=== PATIENT | male | born 1980 ===

== ENCOUNTER 2016-08-26 14:45 | Emergency (ER) | payer OTHER ==
[2016-08-26 14:56] VITALS: BP 131/73
[2016-08-26] MEDS ORDERED: KETOROLAC TROMETHAMINE 60 MG/2 ML VIAL IM ONE ×2 (15:10→15:13)
--- NOTE | 2016-08-26 15:15 | ERNOTE ---
Lower Extremity HPI - Narrative Date of Service: 08/26/16 - General Lower Extremities Pain: knee: right Time Seen by Provider: 08/26/16 15:05 Source: patient Exam Limitations: no limitations - Immun/Allergies/Home Medications Immunizations: IMMUNIZATION HX Immunizations Up to Date Yes History of Influenza Vaccine No Allergies/Adverse Reactions: Allergies Allergy/AdvReac Type Severity Reaction Status Date / Time No Known Allergies Allergy Unverified 08/26/16 15:01 Home Medications: HOME MEDICATIONS Naproxen [Naprosyn] 500 mg PO BID PRN #60 tab 08/26/16 [Last Taken Unknown] - History of Present Illness Narrative: Pt. comes in with R knee pain after having a door hit his knee at work just prior to arrival. Pt. denies any numbness or tingling, SOB, or CP. Pt. denies any alleviating factors or prehospital treatment. Pt. states taht ambulating and movement exacerbates the pain. Review of Systems - Review of Systems Constitutional: Present: no symptoms reported. Absent: fever, chills, weakness , fatigue, malaise EYE: Present: no symptoms reported ENT: Present: no symptoms reported Respiratory: Present: no symptoms reported. Absent: shortness of breath, cough , wheezing Cardiology: Present: no symptoms reported. Absent: chest pain, palpitations, edema Gastrointestinal/Abdominal: Present: no symptoms reported. Absent: nausea, vomiting, diarrhea Genitourinary: Present: no symptoms reported Musculoskeletal: Present: joint pain - R knee. Absent: back pain Skin: Present: no symptoms reported Neurological: Present: no symptoms reported. Absent: headache, dizziness/light- headedness, numbness, tingling Endocrine: Present: no symptoms reported All Other Systems: All systems neg except as marked - Patient's Past Medical History Patient History - Medical: No pertinent hx Patient History - Cardiac/Respiratory: No pertinent hx Patient History - Cancer: No Hx of Cancer Patient History - Surgical Procedures: No surgical history Patient History - Other: None - Social History Living Situations: home Psych History: No pertinent hx Smoking Status: Never smoker Have you smoked in the past 12 months: No - Immunizations Immunizations Up to Date: Yes History of Influenza Vaccine: No Physical Exam - Physical Exam General Appearance: Present: wd/wn, alert, no apparent distress Eye Exam: Normal inspection: bilateral, PERRL: bilateral, EOMI: bilateral Ears, Nose, Throat: Present: normal ENT inspection, normal pharynx Neck: Present: normal inspection, nontender. Absent: lymphadenopathy (R), lymphadenopathy (L) Respiratory: Present: no respiratory distress, normal breath sounds, no accessory muscle use, chest nontender, lungs clear Cardiovascular/Chest: Present: regular rate, rhythm, no murmur, normal peripheral pulses Gastrointestinal/Abdominal: Present: normal bowel sounds, nontender, nondistended, soft, no organomegaly Back Exam: Present: normal inspection Extremity Exam: Present: normal range of motion, no edema, other - bruising R patella tenderness R quad tendons Neurological Exam: Present: alert, oriented, normal mood/affect, no motor/ sensory deficits Skin Exam: Present: normal color, warm/dry. Absent: pallor, skin rash ED Progress - Vital Signs Patient's Vital Signs:: I have reviewed the patient's vital signs. Vital Signs: Vital Signs 08/26/16 14:52 Temperature 36.2 C L Pulse Rate 79 Respiratory 18 Rate Blood Pressure 131/73 O2 Sat by Pulse 100 Oximetry - X-Ray X-Ray #1 X-Ray: knee Interpretation: Reviewed by me X-ray Comments: no acute - Progress/Reassessment Chief Complaint: Lower Extremity Pain/ Injury Departure Clinical Impression: Knee contusion Qualifiers: Encounter type: initial encounter Laterality: right Qualified Code(s): S80.01XA - Contusion of right knee, initial encounter Patellar tendon strain Qualifiers: Encounter type: initial encounter Laterality: right Qualified Code(s): S86.811A - Strain of other muscle(s) and tendon(s) at lower leg level, right leg , initial encounter - Departure Disposition: Home self-care Condition: Good Instructions: RICE for Routine Care of Injuries, [id number], Muscle Strain, [id number], Contusion, [id number] Additional Instructions: Please follow up with provider in occupational health in 2-3 days Call for appointment. Referrals: Elmer Gaitan DO [Primary Care Provider] - Prescriptions: Naproxen [Naprosyn] 500 mg PO BID PRN #60 tab PRN Reason: Pain
--- OUTSIDE RECORDS SUMMARY | 2016-08-26 15:28 | XMS REPORT | Continuity of Care Document ---
:1980 Author Organization [facility] ([facility]) [place] [address] Phone [phone] Care Team Providers Name Role Phone Da Rodriguez Primary Care Provider [phone] Source Comments This disclosure is being made pursuant to the Care Everywhere program, applicable federal and state laws, and may not contain all informaitonavailable regarding this patient.[facility] ([facility]) Active Allergies and Adverse Reactions Allergen Noted Date Severity Reactions Comments Hydrocodone 07/03/2016 Nausea & Vomiting Current Medications Prescription Sig. Disp. Refills Start Date End Date Status HYDROcodone-acetamino Take 1-2 tablets by 15 tablet 0 07/01/2016 Active phen 5-325 mg per mouth every 6 hours tablet as needed for Pain. ciprofloxacin HCl 500 Take 1 tablet (500 14 tablet 0 07/01/2016 Active mg tablet mg total) by mouth 2 times daily. oxyCODONE-acetaminoph Take 1 tablet by 12 tablet 0 07/03/2016 Active en 5-325 mg per mouth every 4 hours tablet as needed for Pain. Do NOT exceed 4000 mg of acetaminophen per 24 hours. ondansetron 4 mg Take 1-2 tablets 12 tablet 0 07/03/2016 Active disintegrating tablet (4-8 mg total) by mouth every 6 hours as needed for Nausea/Vomiting. Active Problems Problem Noted Date Adjustment disorder with anxiety 06/23/2016 Most Recent Encounters Date Type Specialty Providers Description 07/03/2016 Hospital Encounter Wander Cowan, Dx: Abdominal pain, Specialty PA-C unspecified Ann Tineo, location (Primary DO Dx) 07/01/2016 Hospital Encounter Wander Cowan, Dx: Left flank pain Specialty PA-C (Primary Dx) Ann Tineo DO 06/03/2016 Office Visit Psychiatry Leslie Little Dx: Montrell May MD disorder with anxiety (Primary Dx) Social History Tobacco Use Types Packs/Day Years Used Date Former Smoker Cigarettes 0.5 4 Quit: 10/01/2002 Smokeless Tobacco: Never Used Last Filed Vital Signs Vital Sign Reading Time Taken Blood Pressure 119/78 07/03/2016 10:21 AM CDT Pulse 78 07/03/2016 10:21 AM CDT Temperature 37.2 C (98.9 F) 07/03/2016 8:02 AM CDT Respiratory Rate 21 07/03/2016 8:02 AM CDT Height 1.854 m (6' 1") 06/03/2016 2:46 PM [employer] [employer] Weight 67.132 kg (148 lb) 06/03/2016 2:46 PM [employer] Body Mass Index 19.53 06/03/2016 2:46 PM [employer] Oxygen Saturation 99% 07/03/2016 10:21 AM CDT Plan of Care Health Maintenance Due Date Last Done Comments Hepatitis B Vaccine (1 of 3 - Primary Series) 1980 Tdap Vaccine 1993 Lipid Disorder Screening 01/22/2000 MMR Vaccine 01/22/2000 Td Vaccine 01/22/2000 Varicella Vaccine (1 of 2 - Adult - No Evidence of 01/22/2000 Immunity) Influenza Vaccine: Seasonal (#1) 11/16/2015 Results from Last 3 Months [facility] XR ABDOMEN 2 VIEWS ([id number]) (07/03/2016 9:54 AM) Impressions : POSSIBLY A TINY LEFT PELVIC CALCIFICATION WHICH COULD BE WITHIN URETER IF RENAL COLIC IS PRESENT. Narrative RADIOLOGY CONSULTATION [facility] DEPARTMENT OF RADIOLOGY [place] [id number] ER AP SUPINE AND UPRIGHT ABDOMEN: No bowel obstruction or free air and no mass. There may be a very small calcification left pelvis at the level of the ischial spine but this may be artifactual. [facility] URINALYSIS (07/03/2016 8:55 AM) Component Value Range [facility] COLOR URINE Yellow Straw, Pale Yellow, Yellow, Clear, None [facility] CLARITY URINE Slightly Cloudy(A) Clear [facility] Specific [place], Urine 1.015 1.001-1.035 ng/mL [facility] pH, Urine 5.0 <9.0 [facility] Protein, Urine Negative Negative [facility] GLUCOSE URINE Negative Negative [facility] Leukocytes, Urine 1+(A) Negative mcg/L [facility] Blood, Urine 1+(A) Negative [facility] Nitrite, Urine Negative Negative [facility] Ketones, Urine Trace(A) Negative mcg/L [facility] Bilirubin, Urine Negative Negative [facility] CULTURE PERFORMED? Yes Specimen Urine [facility] URINE CULTURE (07/03/2016 8:55 AM)Only the most recent of2 resultswithin the time period is included. Specimen Urine [facility] COMPREHENSIVE METABOLIC PANEL (CMP) (07/03/2016 8:07 AM) Component Value Range [facility] Sodium 144 137-145 mmol/L [facility] Potassium 3.8 3.4-5.1 mmol/L [facility] Chloride 105 98-107 mmol/L [facility] CO2 27 20-30 mmol/L [facility] Glucose 104 60-110 mg/dL [facility] BUN 13 9-20 mg/dL [facility] Creatinine 1.04 0.70-1.25 mg/dL [facility] Total Protein 7.8 6.3-8.2 g/dL [facility] Calcium 9.7 8.4-10.5 mg/dL [facility] Albumin 4.4 3.0-5.0 g/dL [facility] ALP 73 36-113 U/L [facility] ALT/SGPT 29 11-47 U/L [facility] AST/SGOT 19 17-59 U/L [facility] Calculated GFR 82 >60 mL/min/1.73 m2 [facility] Bilirubin, Total 0.8 0.2-1.3 mg/dL Specimen Blood [facility] CBC WITH DIFFERENTIAL (07/03/2016 8:07 AM) Component Value Range [facility] WBC 10.2(H) 3.6-9.4 th/mm3 [facility] RBC 4.77 4.40-5.60 mil/mm3 [facility] HEMOGLOBIN 14.3 13.8-17.0 g/dL [facility] HEMATOCRIT 40.9(L) 41.0-51.0 % [facility] MEAN CORPUSCULAR VOLUME 85.7 84.0-98.0 fl [facility] MEAN CORPUSCULAR HGB 30.0 26.0-38.0 pg [facility] MEAN CORPUSCULAR HGB CONCENTRATION 35.0 32.0-36.0 g/dL [facility] PLATELET COUNT 170 150-350 th/mm3 [facility] Abs Neutrophils 8.82(H) 2.60-7.00 th/mm3 [facility] Abs Lymphocytes 0.77 0.70-3.40 th/mm3 [facility] Abs Monocytes 0.55 0.10-1.00 th/mm3 [facility] Abs Eosinophils 0.02 0.00-0.45 th/mm3 [facility] Abs Basophils 0.02 0.00-0.12 th/mm3 [facility] % Neutrophils 86.6(H) 34.0-67.9 % [facility] % Lymphocytes 7.6(L) 21.8-53.1 % [facility] % Monocytes 5.4 0.0-15.0 % [facility] % Eosinophils 0.2 0.0-6.0 % [facility] % Basophils 0.2 0.0-2.0 % Specimen Blood [facility] CT ABDOMEN PELVIS WO CONTRAST ([id number]) (07/01/2016 9:50 PM) Impressions : #1 A 4MM DISTAL LEFT URETERAL STONE AT APPROXIMATELY 1CM PROXIMAL TO UVJ WITH MILD LEFT HYDRONEPHROSIS. #2 BILATERAL NON OBSTRUCTING NEPHROLITHIASIS. #3 MILD PROSTATIC HYPERTROPHY. Narrative RADIOLOGY CONSULTATION [facility] DEPARTMENT OF RADIOLOGY [place] [id number] ABDOMEN AND PELVIS WITHOUT CONTRAST: Automated exposure control utilized. Lung bases are free of pathology. The liver, spleen, pancreas, and adrenals are normal. There are some tiny non obstructing calcifications in both kidneys. Mild left hydronephrosis and hydroureter. No mass, lymphadenopathy, or inflammatory change and no bowel wall thickening, ascites, or free air. CT PELVIS WITHOUT CONTRAST: There is a 4mm distal left uretal calculus approximately 1cm proximal to UVJ. No mass, lymphadenopathy, or inflammatory change. Mild prostatic hypertrophy with a calcification. No free fluid or free air. [facility] URINE DIPSTICK, NONAUTO POINT OF CARE (07/01/2016 9:05 PM) Component Value Range [facility] POC Specific [place] 1.015 1.015-1.025 UI POC pH 6.0 5.0-8.5 UI POC Leukocyte Trace UI POC Nitrite Negative [facility] POC Protein Trace mg/dl [facility] POC Glucose, Urine normal [facility] POC Ketones Negative [facility] POC Urobilinogen normal [facility] POC Bilirubin Negative [facility] POC Blood 1+ (Small) Specimen Urine, Midstream clean catch
== END 2016-08-26 16:10 | disposition home or self-care (01) ==
LOC: ER 14:45
PROC: 2W3LX1Z Immobilization of Right Lower Extremity using Splint (ICD-10-PCS; principal; 2016-08-26)
DX: S80.01XA Contusion of right knee, initial encounter (principal); S86.811A Strain of other muscle(s) and tendon(s) at lower leg level, right leg, initial encounter; X58.XXXA Exposure to other specified factors, initial encounter; Y93.9 Activity, unspecified; Y92.9 Unspecified place or not applicable; Y99.0 Civilian activity done for income or pay